=== PATIENT | male | born 1990 | race Caucasian/White ===

== ENCOUNTER → 2016-05-22 | Outpatient (CLI) | payer OTHER ==
--- NOTE | 2016-05-22 16:23 | RADRPT ---
PROCEDURE: XR pelvis / bilateral hips. CLINICAL INDICATION: Hip pain TECHNIQUE: AP pelvis/AP and lateral right and left hip views performed COMPARISON: No prior studies are available for comparison. FINDINGS: There is moderate bilateral hip osteoarthrosis involving the superior lateral hip. This is associate d with joint space narrowing, subchondral sclerosis and osteophytosis. There is normal mineralizati on. No fractures or osseous lesions are identified. The soft tissues are unremarkable. IMPRESSION: Moderate bilateral hip osteoarthrosis involving the superior lateral hips. RPTAT: [facility] .Randell Fowler MD, MD Date Time Electronically viewed and signed by .Randell Fowler MD, on 05/22/2016 16:22 .B/
== END | disposition home or self-care (01) ==
LOC: HKI 15:10
PROVIDERS: ATTEND Orthopaedic Surgery
DX: S70.01XA Contusion of right hip, initial encounter (principal); M25.551 Pain in right hip; V00.131A Fall from skateboard, initial encounter; Y93.51 Activity, roller skating (inline) and skateboarding
CPT/HCPCS: 73523; Z7500; G0463